=== PATIENT | female | born 1985 | race Caucasian/White ===

== ENCOUNTER 2023-04-13 06:26 | Emergency (ER) | payer MEDICAID ==
[~2023-04-13] VITALS: Ht 165.1 cm; Wt 119.0 kg
[~2023-04-13 06:26] MED LIST: BENADRYL
[2023-04-13 06:32] VITALS: TEMP 98
[2023-04-13] MEDS ORDERED: AMOXICILLIN TRIHYDRATE 250 MG CAPSULE PO ONE (07:30)
[2023-04-13 07:59] LABS: COVID AG,FIA SOURCE NASAL SWAB
[2023-04-13] MEDS ORDERED: IBUPROFEN 600 MG TABLET PO ONE (08:00)
[2023-04-13 08:26] LABS: SARS-COV2 (COVID) ANTIGEN,FIA Negative (Negative)
[2023-04-13 08:28] LABS: INFLUENZA TYPE A NEGATIVE FOR TYPE A (NEGATIVE); INFLUENZA TYPE B NEGATIVE FOR TYPE B (NEGATIVE)
[2023-04-13] MEDS ORDERED: AMOX500T2 PO (09:04)
[2023-04-13 09:29] VITALS: BP 128/82; PULSE 86; RESP 16
== END 2023-04-13 09:31 | disposition home or self-care (01) ==
LOC: EMS 06:27
DX: K12.2 Cellulitis and abscess of mouth (principal); F17.210 Nicotine dependence, cigarettes, uncomplicated; F12.90 Cannabis use, unspecified, uncomplicated; Z98.890 Other specified postprocedural states; Z88.8 Allergy status to other drugs, medicaments and biological substances; Z20.822 Contact with and (suspected) exposure to COVID-19
CPT/HCPCS: 87430; 87804; 99283

== ENCOUNTER 2023-06-05 04:07 | Emergency (ER) | payer MEDICAID ==
[~2023-06-05] VITALS: Ht 165.1 cm; Wt 123.6 kg
[~2023-06-05 04:07] MED LIST changes: +AMOX500T2 PO
[2023-06-05 04:18] VITALS: BP 116/92; PULSE 93; RESP 15; TEMP 98.5
[2023-06-05] MEDS ORDERED: DIPH50CA37 PO (04:18)
[2023-06-05] MEDS ORDERED: PRED-554 PO (04:18)
[2023-06-05] MEDS ORDERED: FAMOTIDINE 20 MG TABLET PO ONE (04:30)
[2023-06-05] MEDS ORDERED: MethylPREDNISolone SOD SUCC 125 MG/2 ML VIAL IM ONE (04:30)
== END 2023-06-05 04:46 | disposition home or self-care (01) ==
LOC: EMS 04:08
DX: L50.9 Urticaria, unspecified (principal); F12.90 Cannabis use, unspecified, uncomplicated; F17.210 Nicotine dependence, cigarettes, uncomplicated; Z98.890 Other specified postprocedural states; Z88.8 Allergy status to other drugs, medicaments and biological substances
CPT/HCPCS: 99283; 96372; J2930